=== PATIENT | male | born 1975 | race Caucasian/White ===

== ENCOUNTER 2017-03-24 04:19 | Day surgery (SDC) | payer BC ==
[2017-03-22 11:49] LABS: HEMATOCRIT 52.2 % (40.0-51.0); HEMOGLOBIN 17.3 g/dL (13.6-17.8)
--- NOTE | ~2017-03-24 | OP ---
Record Of Operation [facility] [address] [place]. [address] NAME: TIN HOLLIDAY : 77 STATUS : REG [facility] [place] PAT#: [id number] AGE: 41 ADM/REG DATE : 03/24/17 MR#: [id number] REPORT SERV DATE: 03/24/17 DICTATED BY: CIRILO TINEO DATE: 03/24/17 REPORT STATUS : Draft TRANSCRIBED BY: MODL DATE: 03/24/17 DATE OF PROCEDURE: 03/24/2017 PREOPERATIVE DIAGNOSIS: Herniated nucleus pulposus, spinal stenosis, C5-6 and C6-7. POSTOPERATIVE DIAGNOSIS: Herniated nucleus pulposus, spinal stenosis, C5-6 and C6-7. PROCEDURE: 1. Microscopic navigation-assisted surgery. 2. Anterior diskectomy, foraminotomy, C5-6 and C6-7. 3. Implantation of Prestige LP disk arthroplasty, C5-6 and C6-7. SURGEON: Cirilo Tineo D.O. FINISHING ROOM SUPERVISOR: Leodan Darby. ANESTHESIA: General. BLOOD LOSS: 30 mL. INDICATIONS FOR SURGERY: A 41-year-old male with neck, shoulder, and left arm pain that has been unresponsive to usual conservative care. Plain x-rays are essentially normal with minimal decrease in disk height. MRI shows disk herniation, particularly with extrusion on the left side at C6-7. There is a disk osteophyte complex at C5-6 with moderate central cord compression and foraminal compression. The patient does not appear to have an overall spondylitic spine and his facet joints are quite normal. For this reason, we discussed arthroplasty versus fusion. The patient much prefers to have a disk arthroplasty and for re stabilization following the decompression of the cord and the nerve root. Prior to surgery, I have gone over the risks, benefits, alternatives, and expectations. These have been listed in the last office note. Please note, the patient understands this is including everything up to and including quadriplegia or even . The patient was identified in preop. All questions were answered. The patient voiced understanding the risks, willingness to accept those, and requested to proceed with surgery. PROCEDURE IN DETAIL: Antibiotic prophylaxis was given. Neurophysiology monitoring lead was inserted. The patient was brought to the operative suite. General anesthetic including endotracheal intubation was administered. Trejo catheter was not necessary. The patient was in a supine position. The neck in a neutral alignment. A small bolster was placed behind the shoulders. The scalp was painted with Betadine solution. Marroquin three-point fixation attached to the skull using 60 pounds torque in standard position. The Marroquin attached to the Janes frame. The Simalaya navigational registration frame was attached to the [place]. Isolation drapes were placed. The neck was scrubbed with Hibiclens solution. DuraPrep was painted. Sterile drapes were applied. Because of the complexity of surgery, the need to identify correct level of surgery Record Of Operation [facility] [address] [facility] [place]. [address] NAME: TNI HOLLIDAY : 77 STATUS : REG [facility] [place] PAT#: [id number] AGE: 41 ADM/REG DATE : 03/24/17 MR#: [id number] REPORT SERV DATE: 03/24/17 DICTATED BY: CIRILO TINEO DATE: 03/24/17 REPORT STATUS : Draft TRANSCRIBED BY: TINY DATE: 03/24/17 intraoperatively and desire to carry out the safest and most precise dissection, I felt intraoperative navigation was mandatory. Intraoperative CT scan with O-arm was obtained. CT information was used to register the navigational system. With navigational assistance, I identified C5-6 and C6-7. At the mid body of C6, a 2.5 cm transverse Naranjo-Medel skin incision was carried out. The platysma was incised in line with the skin incision. The superficial layer of the deep cervical fascia was released along the anterior border of sternocleidomastoid. Blunt dissection was carried out to the retropharyngeal space where the longus coli muscles were subperiosteally elevated. Retractors were placed. The microscope was sterilely draped and used throughout the remainder of the procedure. Navigational system was used to re-identify the correct level of surgery intraoperatively, and once the exposure was completed, we also used navigation to align a Saragosa distractor pin in the proximal midline of C6 and the distal midline of C7 vertebral body. The anterior disk was incised. Diskectomy was carried out with curettes and rongeurs. As I moved from anterior to posterior, I debrided the uncinate processes laterally. I also removed completely the posterior inferior lip of the body of C6 and removed a large extruded disk fragment from the from the left side in the epidural space. A complete posterior longitudinal ligament was taken down. Foraminotomy was left and right side. The wounds were irrigated. We then used intraoperative imaging and carried out sizing by choosing an 18 mm in depth and 6 mm in height implant. The drill guide was then inserted, and proper rotational alignment was obtained. The four holes were drilled and next the keel cutter was used to cut the keel slots in the inflated inferiorly at C6 and superiorly at C7. We then inserted the permanent implant without difficulty. Once the implant was implanted, intraoperative imaging was repeated showing good positioning of the implant. We could have used a 2 mm longer implant, but thus when available, the overall implantation still very satisfactory. Wounds were irrigated. The retractor was then moved to C5-6. We repeated the same identical process at C5-6, again carrying out anterior diskectomy, debridement of the uncinate processes, a wide foraminotomy left and right side. A complete decompression of the central canal. Finally, the same identical size of implant was chosen. The same drill guide, keel cutting and implantation of the implant was carried out. It should be noted that during the keel cutting, the patient experienced a slight drop in amplitude and the motor evoked potentials. This was not felt to be from impingement, more from just the actual shock of the spine from the impaction of the keel cutter. We stopped once there was any slight drop in amplitude and the MEPs remained the same and intact throughout the remainder of the surgery. After final implantation of C5-6, final intraoperative imaging showed good position of all implants. Good rotational position. The wounds were irrigated. No bleeding was noted. No drain was necessary. The platysma was closed with a running 3-0 Vicryl suture. The subcutaneous tissue was closed with 3-0 Vicryl suture. Subcuticular 4-0 PDS was used for skin closure. Sterile dressings applied. The patient was awakened and extubated and taken to the recovery room in satisfactory condition having tolerated the procedure well. Record Of Operation [facility] [address] [place]. [address] NAME: TIN HOLLIDAY : 77 STATUS : REG [facility] [place] PAT#: [id number] AGE: 41 ADM/REG DATE : 03/24/17 MR#: [id number] REPORT SERV DATE: 03/24/17 DICTATED BY: CIRILO TINEO DATE: 03/24/17 REPORT STATUS : Draft TRANSCRIBED BY: TINY DATE: 03/24/17 /TINY Cirilo Tineo D.O. / [id number] CC: Cirilo Tineo D.O.
[~2017-03-24 04:19] MED LIST: ALLEGRA180 PO; CLARIT10 PO
== END 2017-03-24 15:18 | disposition home or self-care (01) ==
LOC: SDC 04:19
PROVIDERS: Orthopaedic Surgery Orthopaedic Surgery of the Spine
PROC: 0RR30JZ Replacement of Cervical Vertebral Disc with Synthetic Substitute, Open Approach (ICD-10-PCS; principal; 2017-03-24 05:45)
DX: M50.222 Other cervical disc displacement at C5-C6 level (principal); M50.223 Other cervical disc displacement at C6-C7 level; M48.02 Spinal stenosis, cervical region; G47.33 Obstructive sleep apnea (adult) (pediatric); K21.9 Gastro-esophageal reflux disease without esophagitis; M17.9 Osteoarthritis of knee, unspecified; Z79.899 Other long term (current) drug therapy; Z98.890 Other specified postprocedural states; Z90.89 Acquired absence of other organs
CPT/HCPCS: 82962; 85014; 85018; 87641; 88304; A9270-GY; C1713; J0690; J1170; J2250; J2405; J2550; J2710; J3010